=== PATIENT | female | born 1990 | race Caucasian/White ===

== ENCOUNTER 2023-01-22 16:26 | Emergency (ER) | payer OTHER ==
[2023-01-22] MEDS ORDERED: Rabies Vaccine Human 2.5 UNITS VIAL ONE (17:15)
== END 2023-01-22 18:18 | disposition home or self-care (01) ==
LOC: ERS 16:26
DX: S61.251A Open bite of left index finger without damage to nail, initial encounter (principal); W55.01XA Bitten by cat, initial encounter
CPT/HCPCS: 90376; 90471; 90675; 96372

== ENCOUNTER → 2023-01-25 | Day surgery (SDC) | payer OTHER ==
[~2023-01-25] MED LIST: Rabies Vaccine Human 2.5 UNITS VIAL ONE
== END ==
LOC: ER/OP 18:05
PROVIDERS: ATTEND Registered Nurse Emergency
DX: Z23 Encounter for immunization (principal)
CPT/HCPCS: 90471; 90675